=== PATIENT | female | born 1950 | race Hispanic/Latino ===

== ENCOUNTER → 2025-03-13 | Outpatient (REF) | payer MEDICARE ==
[~2025-03-13] MED LIST: ACETAMINOPHEN-1 EAC4 PO; ACETAMINOPHEN650 M1 PO; ASPIRIN81 MG PO; BENICAR20 MG PO; ESCITALOPRAM OX20 MG PO; FLUOXETINE HCL20 MG PO; HYDROCHLOROTHIA25 MG PO; METFORMIN HCL500 MG PO; METOPROLOL SUCC25 MG PO; MOTRIN200 MG PO; MUCINEX DM ER1 EACH PO; MULTI-VITAMIN1 EACH PO; NEURONTIN400 MG PO; NEXIUM40 MG PO; OLMESARTAN-HCT1 EAC2 PO; OMEPRAZOLE40 MG PO; SUCRALFATE1 GM PO; TRAZODONE HCL100 MG PO; [UNRECOGNIZED DRUG - OTHER] PO
== END ==
LOC: DX 08:52
PROVIDERS: ATTEND Family Medicine
DX: K30 Functional dyspepsia (principal)
CPT/HCPCS: 71046; 74246